=== PATIENT | male | born 1950 | race Caucasian/White ===

== ENCOUNTER 2018-09-08 12:53 | Outpatient (CLI) | payer BC ==
--- NOTE | 2018-09-08 15:06 | RAD ---
LUMBAR SPINE TWO VIEWS: History: Lumbar radiculopathy, pain down left leg for six months. FINDINGS: Extensive multilevel disc osteophytosis with disc narrowing as well as severe facet arthrosis. No sig nificant malalignment. No focal bone lesion. No acute compression fracture. Mild vertical height loss of T11 have more of an old appearance. IMPRESSION: Lumbar spondylosis on this two view AP and lateral exam. POS: [facility]
== END 2018-09-08 12:54 | disposition home or self-care (01) ==
LOC: TBSIIMAG 12:53
PROVIDERS: ATTEND Neurological Surgery
DX: M47.26 Other spondylosis with radiculopathy, lumbar region (principal)
CPT/HCPCS: 72100